=== PATIENT | female | born 1940 | race Caucasian/White ===

== ENCOUNTER 2018-11-18 10:15 | Inpatient (IN) | payer OTHER ==
[~2018-11-18] VITALS: Ht 160 cm; Wt 64.0 kg
[~2018-11-18 10:15] MED LIST: ACETAMINOOPHEN-1 TAB PO; CLONAZEPAM1 MG PO; DOCUSATE SODIU100 MG PO
[2018-11-18] MEDS ORDERED: ATIVAN0.5 M1 PO (11:57)
[2018-11-18] MEDS ORDERED: LISINOPRIL20 MG PO (11:57)
[2018-11-18] MEDS ORDERED: NABUMETONE500 MG PO (11:57)
== END 2018-11-28 13:28 | disposition home or self-care (01) | DRG 333 ==
LOC: SURG 10:15 → SURH 11-25 07:52 → O/R 11-25 07:52 → SURG 11-25 10:15 → SURH 11-25 14:15 → SURG 11-25 18:30 → SURH 11-28 13:28
PROVIDERS: ADMIT Colon & Rectal Surgery
PROC: 07TB4ZZ Resection of Mesenteric Lymphatic, Percutaneous Endoscopic Approach (ICD-10-PCS; 2018-11-25)
PROC: 0DTP4ZZ Resection of Rectum, Percutaneous Endoscopic Approach (ICD-10-PCS; principal; 2018-11-25 18:30)
DX: D12.7 Benign neoplasm of rectosigmoid junction (principal); M50.00 Cervical disc disorder with myelopathy, unspecified cervical region; R59.0 Localized enlarged lymph nodes; I10 Essential (primary) hypertension

== ENCOUNTER 2019-12-11 08:33 | Day surgery (SDC) | payer OTHER ==
[~2019-12-11 08:33] MED LIST changes: +ATIVAN0.5 M1 PO; +LISINOPRIL20 MG PO; +NABUMETONE500 MG PO
== END 2019-12-11 15:15 | disposition home or self-care (01) ==
LOC: AMB-ENDOS 08:33
PROVIDERS: ATTEND Colon & Rectal Surgery
DX: K62.89 Other specified diseases of anus and rectum (principal); K64.1 Second degree hemorrhoids